=== PATIENT | male | born 1960 | race Caucasian/White ===

== ENCOUNTER 2019-07-05 10:00 | Outpatient (CLI) | payer MEDICAID ==
[2019-07-05] MEDS ORDERED: MULT-717 PO (10:36)
[2019-07-05] MEDS ORDERED: LIRA0.6P2 SC (10:36)
[2019-07-05] MEDS ORDERED: CETI10TA26 PO (10:36)
[2019-07-05] MEDS ORDERED: ABAC1TAB14 PO (10:36)
[2019-07-05] MEDS ORDERED: OXYB10TA6 PO (10:36)
[2019-07-05] MEDS ORDERED: HYDR-3241 PO (10:36)
[2019-07-05] MEDS ORDERED: CARB200T4 PO (10:36)
[2019-07-05] MEDS ORDERED: ATOR20TA37 PO (10:36)
[2019-07-05] MEDS ORDERED: IBUP-1223 PO (10:36)
[2019-07-05] MEDS ORDERED: DAPA10TA PO (10:36)
[2019-07-05] MEDS ORDERED: METF1000 PO (10:36)
[2019-07-05] MEDS ORDERED: CHOL10003 PO (10:36)
[2019-07-05] MEDS ORDERED: DULO30CA2 PO (10:36)
[2019-07-05] MEDS ORDERED: LISI-170 PO (10:36)
[2019-07-05] MEDS ORDERED: ASPI-496 PO (10:36)
[2019-07-05 11:14] LABS: ALANINE AMINOTRANSFERASE 42 U/L (12-78); ALBUMIN 3.9 g/dL (3.4-5.0); ANION GAP 7 mmol/L (5-15); CALCIUM 8.8 mg/dL (8.5-10.1); CHLORIDE 104 mmol/L (98-107)
[2019-07-05 11:17] LABS: ALKALINE PHOSPHATASE 78 U/L (45-117); BILIRUBIN,TOTAL 0.3 mg/dL (0.2-1.0); CREATININE 1.24 mg/dL (0.7-1.3); TOTAL PROTEIN 7.9 g/dL (6.4-8.2)
== END 2019-07-05 23:59 | disposition home or self-care (01) ==
LOC: STAR 10:00
PROVIDERS: ATTEND Orthopaedic Surgery
DX: Z01.818 Encounter for other preprocedural examination (principal); M75.112 Incomplete rotator cuff tear or rupture of left shoulder, not specified as traumatic; M25.512 Pain in left shoulder; M75.52 Bursitis of left shoulder; S43.432A Superior glenoid labrum lesion of left shoulder, initial encounter; M75.42 Impingement syndrome of left shoulder; S83.241A Other tear of medial meniscus, current injury, right knee, initial encounter; X58.XXXA Exposure to other specified factors, initial encounter; Y93.89 Activity, other specified; Y92.89 Other specified places as the place of occurrence of the external cause; Y99.8 Other external cause status
CPT/HCPCS: 36415; 80053; 93005